=== PATIENT | male | born 1980 ===

== ENCOUNTER 2020-12-21 15:24 | Emergency (ER) | payer OTHER, SELFPAY ==
[2020-12-21 15:34] VITALS: BP 138/95; PULSE 96; RESP 18; TEMP 36.8; O2SAT 97
--- NOTE | 2020-12-21 16:15 | DI.CT_ITS ---
Exam(s) CT HEAD WO EXAM: CT HEAD WO CLINICAL HISTORY: Closed Head Injury. TECHNIQUE: Imaging Protocol: Axial computed tomography images with coronal and sagittal reformatted images were created and reviewed COMPARISON: No exams were available for comparison FINDINGS: Ventricles and Extra axial spaces: Normal in size and morphology for the patient's age. Hemorrhage: None. Cerebral parenchyma: Normal. Midline shift: None. Brainstem/Cerebellum: Normal. Calvarium: Normal. Visualized Paranasal sinuses/Mastoids: Clear. Soft Tissues: Scalp laceration above left orbit. IMPRESSION: No acute intracranial process. RADIATION DOSE DELIVERED: Total DLP DATA REPOSITORY: All CT scans at this facility are submitted to the National Radiology Data Registry (NRDR) Dose Index Registry (DIR) with the [employer] ([employer]). RADIATION OPTIMIZATION: All CT scans at this facility use at least one of these dose optimization te chniques: automated exposure control; mA and/or kV adjustment per patient size (includes targeted exa ms where dose is matched to clinical indication); or iterative reconstruction.
--- NOTE | 2020-12-21 16:15 | DI.CT_ITS ---
Exam(s) CT FACIAL WO EXAM: CT FACIAL WO CLINICAL HISTORY: R/O Facial Fractures, Fall. TECHNIQUE: Imaging Protocol: Axial computed tomography images with coronal and sagittal reformatted images were created and reviewed CONTRAST MATERIAL: Noncontrast COMPARISON: No exams were available for comparison FINDINGS: Facial Bones: No definite fracture is noted in facial bones. Sinuses and Mastoids: Unremarkable. Globes, extraocular muscles, optic nerves and retrobulbar fat: Normal. Upper aerodigestive tract: Normal. Mandible and bilateral temporomandibular joints: Normal. Soft tissues: Small laceration above left orbit. IMPRESSION: No evidence of fracture/dislocation in facial bones. RADIATION DOSE DELIVERED: Total DLP DATA REPOSITORY: All CT scans at this facility are submitted to the National Radiology Data Registry (NRDR) Dose Index Registry (DIR) with the [employer] ([employer]). RADIATION OPTIMIZATION: All CT scans at this facility use at least one of these dose optimization te chniques: automated exposure control; mA and/or kV adjustment per patient size (includes targeted exa ms where dose is matched to clinical indication); or iterative reconstruction.
--- NOTE | 2020-12-21 16:18 | W.ED.GENAD ---
Discharge Plan Disposition Patient Disposition: HOME Condition: Stable Discharge Details Clinical Impression: CHI (closed head injury), Face lacerations Primary Care Provider: Nga,Local ED Provider: Nhi Farmer Discharge Instructions Instructions: Care For Your Stitches (ED), Head Injury (ED), Facial Laceration (ED) Additional Instructions: Have stitches removed in 5-7 days. Leave alone for the first 12 to 24 hours. Tomorrow you may take a shower and wash under running soap and water. Allowed to air dry at least 2 hours a day. Be seen sooner if any signs of infection including increased redness, swelling, drainage, red. Also be seen sooner for any signs of worsening head injury including vomiting, confusion, blurry vision, headache not relieved by Tylenol or ibuprofen. Follow up with primary care provider in 3-5 days. Return to ED sooner if any worsening or concerns. Increase oral fluids. Please take Tylenol or Ibuprofen with food every 4-6 hours as needed for pain and swelling. Discharge Data Discharge Date/Time-TO BE ENTERED AT DEPARTURE: 12/21/20 18:55 Medical Decision Making 40-year-old male presents to the ER with chief complaint of mechanical fall while hiking in the rain. He slipped and tripped on a rug hitting his face. He denies loss of consciousness. He does have approximately 3 cm laceration over his left eyebrow linear, multiple small superficial appearing lacerations to left lower eyelid bridge of his nose and the left corner of the nasolabial fold. No mouth trauma. He denies any headache or neck pain. Reports last tetanus shot was approximately 2 months ago. Denies any chest pain, shortness of breath, nausea vomiting diarrhea. He is alert and oriented x3 upon arrival. At this time CT head and facial ordered to rule out fractures or intracranial bleed. Topical numbing let and wound care ordered. Eyebrow laceration is suturable. FINDINGS: Orbital cavity: Orbits are normal. Globes are unremarkable. Bones/joints: No acute fracture. Paranasal sinuses: Normal. No air-fluid levels. Soft tissues: Small left supraorbital soft tissue defect noted. No unexpected radiopaque foreign body. IMPRESSION: 1. No acute facial bone fracture. 2. Small left supraorbital soft tissue defect. 3. No unexpected radiopaque foreign body FINDINGS: Brain: Normal. No hemorrhage. Unremarkable white matter. No mass effect. Cerebral ventricles: No ventriculomegaly. Paranasal sinuses: Visualized sinuses are unremarkable. No fluid levels. Mastoid air cells: Visualized mastoid air cells are well aerated. Bones/joints: Unremarkable. No acute fracture. Soft tissues: Unremarkable. IMPRESSION: No acute intracranial abnormality. Left eyebrow laceration repaired with 4 simple interrupted erupted sutures as noted in procedure note above. Wound anesthetized infiltrated with 1% lidocaine with epi patient tolerated well. Anesthesia was achieved. Wound was cleaned with chlorhexidine surgical scrub. Discussed home care with patient and family and have sutures removed in 5 to 7 days discussed signs of closed head injury, verbalized understanding. HPI General Mode of arrival: ambulatory. Date/Time Provider Initiated Documentation: 12/21/20 15:39. Limitations to Documentation: no limitations. Information obtained by: patient and RN notes reviewed. HPI Narrative: 40-year-old male presents to the ER with chief complaint of mechanical fall while hiking in the rain. He slipped and tripped on a rug hitting his face. He denies loss of consciousness. He does have approximately 3 cm laceration over his left eyebrow linear, multiple small superficial appearing lacerations to left lower eyelid bridge of his nose and the left corner of the nasolabial fold. No mouth trauma. He denies any headache or neck pain. Reports last tetanus shot was approximately 2 months ago. Denies any chest pain, shortness of breath, nausea vomiting diarrhea. He is alert and oriented x3 upon arrival. Related Data Allergies Allergy/AdvReac Type Severity Reaction Status Date / Time No Known Allergies Allergy Unverified 12/21/20 15:49 General Stated Complaint: HeadInjury MARLENY: 3 Review of Systems Narrative: Constitutional: Negative for weight loss, alert and oriented, well groomed, normal body habitus, appears comfortable. HEENT: Denies trip and fall prior to arrival facial lacerations no loss of consciousness headaches, blurry vision, nasal discharge, sore throat, trouble swallowing. Denies neck pain. Chest: Denies chest pain, palpitations, irregular rhythm, hypertension. Respiratory: Denies Shortness of breath, cough, hemoptysis. GI: Denies abdominal pain, nausea, vomiting, diarrhea, constipation. : Denies dysuria, hematuria, flank pain, rectal bleeding. Neuro: Denies dizziness, blurry vision, weakness, syncope, headache or facial numbness. Hematologic: Denies easy bruising, intolerance to heat or cold, hair loss. [facility] Social History Smoking/Tobacco Use Status: Never Smoking risk assessment performed?: Yes Alcohol Intake: never Drug use: Never Substance use type: does not use Do you feel safe at home: Yes Do you feel safe in your relationship?: Yes Exam Narrative Exam Narrative: General: Well Developed, Awake and Alert, conversant. Skin: Warm and Dry HEENT: Head: No palpable deformities, Normocephalic Eyes: Pupils PERRLA, EOM's intact. No periorbital eccymosis or step off Ears: Canal patent. Tympanic membranes are clear . No arreguin's sign, no hemptympanum. Nose/Face: See diagram below. Facial bones nontender to palpation and stable with manipulation. Mouth/Throat: No intraoral trauma. Teeth and mandible are intact. Neck: No midline tenderness, no step off, no deformity to palpation of C-spine. Trachea midline. Chest: No surface trauma. Nontender without crepitus or deformity. Lungs clear to ausculatation bilaterally. Heart: RRR, no rubs, murmurs or gallop. Abdomen: No abrasions, ecchymosis, or surface trauma. Nondistended. Nontender to palpation no guarding, rebound, or rigidity. Pelvis: Nontender to palpation and stable to compression. Femoral pulses strong and equal Extremities: See diagram below. Sensation intact. Peripheral pulses intact and equal. Neuro: ANO x4, GCS 15, cranial nerves II through XII intact. Motor and sensory exam nonfocal. Reflexes are symmetric. [facility] Head images: 1. Approximately 3 cm linear partial-thickness laceration noted over the left eyebrow, bleeding controlled. 2. Some superficial abrasion 3. Small superficial laceration 4. Small superficial laceration 5. Swelling, ecchymosis Skin Full body images: 1. Ecchymosis, swelling full range of motion no obvious deformity. 2. Superficial abrasion Course Vital Signs Vital signs: Vital Signs Temperature 36.8 C 12/21/20 15:34 Pulse 96 H 12/21/20 15:34 Respiratory Rate 18 12/21/20 15:34 Blood Pressure 138/95 H 12/21/20 15:34 Pulse Oximetry 97 12/21/20 15:34 Temperature 36.8 C 12/21/20 15:34 Temperature Source Temporal Artery Scan 12/21/20 15:34 Pulse 96 H 12/21/20 15:34 Respiratory Rate 18 12/21/20 15:34 Respiratory Effort 12/21/20 15:48 Blood Pressure 138/95 H 12/21/20 15:34 Blood Pressure Position Sitting 12/21/20 15:34 Pulse Oximetry 97 12/21/20 15:34 Oxygen Delivery Method Room Air 12/21/20 15:34 Oxygen Flow Rate 0 12/21/20 15:34 Procedures Laceration Laceration 1: Site: face (Left eyebrow) Side (If applicable): left Size (cm): 3 Description: linear, irregular and contaminated Depth: simple, single layer Local Anesthetic: Lidocaine 1% and with Epi Amount of anesthesia used (mL): 4 Pre-repair: wound explored, irrigated extensively and deep structures intact Skin layer closed with: nylon Size (cm): 4-0 Number of sutures: 4 Technique: simple, interrupted
[2020-12-21] MEDS: Lidocaine/Epinephri/Tetracaine Topical Gel 3 ML TP (16:45)
--- NOTE | 2020-12-21 17:40 | DI.VRAD_ITS ---
PROCEDURE INFORMATION: Exam: CT Head Without Contrast Exam date and time: 12/21/2020 4:26 PM Age: 40 years old Clinical indication: Other: Fall, facial laceration TECHNIQUE: Imaging protocol: Computed tomography of the head without contrast. Total images: 1110 Radiation optimization: All CT scans at this facility use at least one of these dose optimization techniques: automated exposure control; mA and/or kV adjustment per patient size (includes targeted exams where dose is matched to clinical indication); or iterative reconstruction. COMPARISON: No relevant prior studies available. FINDINGS: Brain: Normal. No hemorrhage. Unremarkable white matter. No mass effect. Cerebral ventricles: No ventriculomegaly. Paranasal sinuses: Visualized sinuses are unremarkable. No fluid levels. Mastoid air cells: Visualized mastoid air cells are well aerated. Bones/joints: Unremarkable. No acute fracture. Soft tissues: Unremarkable. IMPRESSION: No acute intracranial abnormality. Dictated and Authenticated by: Jeannette Isabel MD. Ordering:MAYUR Hankins MD
--- NOTE | 2020-12-21 17:44 | DI.VRAD_ITS ---
PROCEDURE INFORMATION: Exam: CT Maxillofacial Without Contrast Exam date and time: 12/21/2020 4:26 PM Age: 40 years old Clinical indication: Other: Facial laceration TECHNIQUE: Imaging protocol: Computed tomography images of the face without contrast. Total images: 922 Radiation optimization: All CT scans at this facility use at least one of these dose optimization techniques: automated exposure control; mA and/or kV adjustment per patient size (includes targeted exams where dose is matched to clinical indication); or iterative reconstruction. COMPARISON: No relevant prior studies available. FINDINGS: Orbital cavity: Orbits are normal. Globes are unremarkable. Bones/joints: No acute fracture. Paranasal sinuses: Normal. No air-fluid levels. Soft tissues: Small left supraorbital soft tissue defect noted. No unexpected radiopaque foreign body. IMPRESSION: 1. No acute facial bone fracture. 2. Small left supraorbital soft tissue defect. 3. No unexpected radiopaque foreign body. Dictated and Authenticated by: Jeannette Isabel MD. Ordering:MAYUR Hankins MD
[2020-12-21 18:31] VITALS: BP 138/76; PULSE 72; RESP 18; TEMP 36.7; O2SAT 98
[2020-12-21] MEDS: Ibuprofen 600 MG TAB, 6 TABS/BTL PO (18:31)
== END 2020-12-21 18:57 | disposition home or self-care (01) ==
PROVIDERS: Emergency Provider Registered Nurse Emergency
DX: S01.81XA Laceration without foreign body of other part of head, initial encounter (principal); S80.812A Abrasion, left lower leg, initial encounter; S50.12XA Contusion of left forearm, initial encounter; S09.8XXA Other specified injuries of head, initial encounter; W01.198A Fall on same level from slipping, tripping and stumbling with subsequent striking against other object, initial encounter; Y93.01 Activity, walking, marching and hiking
CPT/HCPCS: 12013; 99284; 70450; 70486; 99282